=== PATIENT | male | born 1960 | race Caucasian/White ===

== ENCOUNTER 2018-09-11 13:38 | Emergency (ER) | payer MEDICARE, OTHER ==
[2018-09-11 14:44] LABS: % BASOPHILS 0.7 % (0.0-2.0); % EOSINOPHILS 10.4 % (0.0-5.0); % LYMPHOCYTES 29.9 % (20.0-50.0); % MONOCYTES 7.7 % (2.0-10.0); % NEUTROPHILS 51.3 % (40.0-80.0); EOSINOPHILE ABSOLUTE 0.7 Th/cmm (0.1-0.4); HEMATOCRIT 39.5 % (41.0-60); HEMOGLOBIN 13.2 gm/dL (12-16); LYMPHOCYTE ABSOLUTE 1.9 Th/cmm (1.5-3.0); MEAN CELL VOLUME 91.9 fl (80-99); MEAN CORPUSCULAR HEMOGLOBIN 30.7 pg (26.0-30.0); MEAN CORPUSCULAR HGB CONC 33.4 pg (28.0-36.0); MONOCYTE ABSOLUTE 0.5 Th/cmm (0.3-1.0); NEUTROPHILE ABSOLUTE 3.2 Th/cmm (1.8-8.0); PLATELET COUNT 230 Th/cmm (150-400); RED CELL DISTRIBUTION WIDTH 12.8 % (11.5-20.0); WHITE BLOOD COUNT 6.3 Th/cmm (4.8-10.8)
[2018-09-11 15:02] LABS: ALB/GLOB RATIO 1.5 (1.0-1.8); ALBUMIN 3.6 gm/dL (4.2-5.5); ALKALINE PHOSPHATASE 222 U/L (34-104); ANION GAP 11.4 (7.0-16.0); BILIRUBIN,TOTAL 0.5 mg/dL (0.3-1.0); BUN - UREA NITROGEN 29 mg/dL (7-25); CALCIUM SERUM 8.7 mg/dL (8.6-10.3); CARBON DIOXIDE 20.7 mEq/L (21.0-31.0); CHLORIDE 110 mEq/L (98-107); CREATININE - SERUM 1.3 mg/dL (0.7-1.3); GFR AFRICAN-AMERICAN > 60.0 ml/min (>90); GFR NON AFRICAN-AMERICAN > 60.0 ml/min; GLUCOSE 123 mg/dL (70-105); POTASSIUM SERUM 4.1 mEq/L (3.5-5.1); SGOT 33 U/L (13-39); SGPT/ALT 37 U/L (7-52); SODIUM SERUM 138 mEq/L (136-145)
--- NOTE | 2018-09-12 10:23 | Diagnostic Imaging Report ---
Exam: CT examination lumbar sacral spine. HISTORY: Low back pain Total DLP equals 1031 CTDI equals 32.5 Findings: Multiple contiguous thin section of the lumbar sacral spine were obtained in axial plane with coronal and sagittal reconstruction technique. The study demonstrates vertebral bodies of normal height with preserved intervertebral disc spaces. There is a question of mild 3 mm disc protrusion midline to the left at the L4-L5 level. Clinical correlation and MRI examination might be helpful. There is no evidence of prevertebral soft tissue swelling. There is no evidence of spinal stenosis. There is no evidence of spondylolysis or spondylolisthesis. Mild degenerative changes are noted with facet arthropathy lower lumbar sacral spine. IMPRESSION: L4-L5 intervertebral disc protrusion midline to the left approximately 2-3 mm, clinical correlation recommended. MRI examination might be helpful.
--- NOTE | 2018-09-12 10:25 | Diagnostic Imaging Report ---
Chest x-ray single view History: Cough Comparison: None The heart size is normal. No focal pulmonary parenchymal processes. No hilar or mediastinal abnormalities. Impression: No acute abnormalities
--- NOTE | 2018-10-09 16:08 | History & Physical ---
ADMIT DATE: 09/11/2018 CHIEF COMPLAINT: Leg pain and back pain. HISTORY OF PRESENT ILLNESS: The patient is a 58-year-old male who presented to the Emergency Room for evaluation of his lower back and right knee and hip pain. The patient states that he has had this difficulty for some time, but has gotten worse. The patient states that he has a history of gout and a history of hypertension. The patient denies any recent lifting or bending or sports activities that cause the back pain. The patient now states that his usual medications are not adequate to help with the pain and he desires something for the pain and also something for the gout. ALLERGIES: The patient has no allergies. VITAL SIGNS: Normal. Temperature 98.6, heart rate 82, respirations 16, blood pressure 126/76 and O2 sat 99% on room air. REVIEW OF SYSTEMS: The patient denies any difficulty with any part of his body except for those things mentioned in the HPI. PAST MEDICAL HISTORY: The patient admits to gout, hypertension and hip and knee problems. The patient denies any diabetes, hypertension or heart disease. FAMILY HISTORY: None related to the HPI. SOCIAL HISTORY: The patient does not smoke, does not drink and does not do bad drugs. SURGICAL HISTORY: None. MEDICATIONS: Reviewed. PHYSICAL EXAMINATION: GENERAL: Reveals a well-developed, well-nourished, well-hydrated male, in no acute distress, alert and oriented x 3 and cooperative. VITAL SIGNS: As above, stable. HEAD, EYES, EARS, NOSE AND THROAT: All within normal limits. SKIN: Normal with no rashes. EXTREMITIES: Examination of the right knee and hip: Full range of motion and minimal pain, especially in the right knee area. The patellar reflexes are 2+ and equal. The patient has no sensory loss in the lower extremities. NECK: Normal, nontender with full range of motion. RESPIRATIONS: Normal excursion of the diaphragm to auscultation. No wheezes, no rhonchi, no rales. CARDIOVASCULAR: There is a regular rhythm and rate. No murmur heard. There is no gallop or rub heard. There is normal S1 and S2. GASTROINTESTINAL: No tenderness or rebound. ABDOMEN: No guarding, no organomegaly, no hernias appreciated. Normal bowel sounds. The abdomen is nondistended. There are no masses or bruits and there is no McBurney point tenderness. GENITOURINARY: There is no CVA tenderness. EXTREMITIES: As stated above. There is no edema of the extremities. There is normal strength. Full range of motion. The digits are normal and the nails are normal. NEUROLOGIC: Cranial nerves 2-12 are grossly intact. There were no lateralizing signs. NEUROLOGIC/PSYCHIATRIC: The patient is alert and oriented x 3 and cooperative. The patient's motor strength is normal. Gait is also normal. No focal deficits. ASSESSMENT: Recurrent lower extremity and back pain. There was no septic shock. Final diagnoses are recurrent right hip pain and right lower extremity pain. Aftercare followup instructions were given to the patient. The patient is counseled regarding his labs and his condition. The patient was told to follow up with his private medical doctor JENNIFER and take medications as prescribed. The patient was discharged home on medications and was told to follow up with his private doctor. JOB# [id number]
== END 2018-09-11 15:23 | disposition home or self-care (01) ==
LOC: ER 13:38
DX: M54.5 Low back pain (principal); M25.561 Pain in right knee; M25.551 Pain in right hip; I10 Essential (primary) hypertension
CPT/HCPCS: 99284; 96372 ×2; 71045; 72131; 84484; 36415; 85025; 83036; 80053; J1885; J2930; Z7502